=== PATIENT | female | born 1990 | race Caucasian/White ===

== ENCOUNTER 2017-12-04 16:33 | Emergency (ER) | payer SELFPAY ==
[2017-12-04] MEDS ORDERED: ASPIRIN PO ONE (17:09)
[2017-12-04] MEDS ORDERED: CATAPRES ONE (17:30)
[2017-12-04] MEDS ORDERED: CATAPRES PO ONE (17:32)
[2017-12-04 17:50] LABS: Bacteria,Urine 1+ /HPF (Negative); Bilirubin,Urine NEG (Negative); Blood,Urine NEG (Negative); Color,Urine Yellow (Yellow); Mucus,Urine FEW /HPF; Urobilinogen,Urine < 2.0 mg/dL (<2.0)
[2017-12-04 17:50] LABS: Basophils % (Auto) 0.6 % (0.0-1.8); Eosinophils # (Auto) 0.2 K/mm3 (0.0-0.4); Eosinophils % (Auto) 3.6 % (0.0-4.3); Hematocrit 35.1 % (30.3-42.9); Hemoglobin 10.7 gm/dl (10.1-14.3); Lymphocytes # (Auto) 2.7 K/mm3 (1.2-5.4); Lymphocytes % (Auto) 41.5 % (13.4-35.0); Mean Corpuscular HGB Conc 31 % (30-34); Monocytes # (Auto) 0.8 K/mm3 (0.0-0.8); Platelet Count 278 K/mm3 (140-440)
[2017-12-04 17:52] LABS: HCG Qualitative,Urine Negative (Negative)
[2017-12-04 17:52] LABS: Mean Corpuscular Hemoglobin 21 pg (28-32); Mean Corpuscular Volume 69 fl (79-97); Red Cell Distribution Width 22.1 % (13.2-15.2)
[2017-12-04 18:01] LABS: BUN/Creatinine Ratio 14; Blood Urea Nitrogen 15 mg/dL (7-17); Calcium 8.9 mg/dL (8.4-10.2); Hemolysis Index 7
[2017-12-04 18:23] VITALS: BP 170/109
--- NOTE | 2017-12-04 18:50 | Cat Scan Report ---
FINAL REPORT PROCEDURE: CT head without contrast. TECHNIQUE: Computerized tomography of the head was performed without contrast material. HISTORY: Blurry vision with hypertension. COMPARISON: No prior studies are available for comparison. FINDINGS: The ventricles are normal in size. The guillen matter and white matter appear normal. There are no mass lesions. There is no intracranial hemorrhage. The calvarium appears intact. The mastoid air cells and visualized paranasal sinuses are clear. IMPRESSION: Normal study.
== END 2017-12-04 18:30 | disposition left against medical advice (07) ==
LOC: ED 16:33
DX: R06.02 Shortness of breath (principal); Z53.21 Procedure and treatment not carried out due to patient leaving prior to being seen by health care provider
CPT/HCPCS: 36415; 70450; 80048; 81001; 81025; 84484; 85025; 93005; 93010